=== PATIENT | male | born 1985 | race Caucasian/White ===

== ENCOUNTER 2022-12-28 13:45 | Inpatient (IN) | payer OTHER ==
[2022-12-28 14:11] VITALS: BMI 25.0
[2022-12-28] MEDS ORDERED: P-EPHED 60MG/TRIPROLIDI 2.5MG TABLET PO PRN (18:34)
[2022-12-28] MEDS ORDERED: BENZOCAINE/MENTHOL (CHLORASEPTIC ) LOZENGE MM PRN (18:34)
[2022-12-28] MEDS ORDERED: MAGNESIUM HYDROX 2400MG/30ML ORAL SUSPENSION 30 ML CUP PO PRN (18:34)
[2022-12-28] MEDS ORDERED: POLYETHYLENE GLYCOL (HEALTHYLAX) 3350 17 GM PACKET PO PRN (18:34)
[2022-12-28] MEDS ORDERED: IBUPROFEN 400 MG TABLET (FP) PO PRN (18:34)
[2022-12-28] MEDS ORDERED: guaiFENesin 200 MG/10 ML 10 ML UNIT-DOSE CUPS PO PRN (18:34)
[2022-12-28] MEDS ORDERED: PATIENT'S OWN MEDICATION (NON-FORMULARY) (Levetiracetam [Levetiracetam] 750 MG Tablet) PO SCH (22:00)
[2022-12-28] MEDS ORDERED: TUBERCULIN PPD 5 TU/0.1ML VIAL ID ONE (22:23)
[2022-12-28] MEDS: MELATONIN 5 MG TABLETS PO PRN (22:25)
[2022-12-28] MEDS: hydrOXYzine PAMOATE 25 MG CAPSULE (FP) PO PRN (22:25)
[2022-12-28] MEDS: THIAMINE HCL 100 MG TABLET (FP) PO SCH (22:25)
[2022-12-29] MEDS: PRENATAL VITAMINS W/ FOLIC ACID TABLET (FP) PO SCH (09:53)
[2022-12-29 14:51] LABS: PH,URINE 5.5 (5.0-8.0); URINE APPEARANCE CLEAR; URINE BILIRUBIN NEGATIVE (NEGATIVE); URINE COLOR YELLOW; URINE GLUCOSE (UA) NEGATIVE (NEGATIVE); URINE KETONE NEGATIVE (NEGATIVE); URINE LEUK ESTERASE NEGATIVE (NEGATIVE); URINE NITRITE NEGATIVE (NEGATIVE); URINE PROTEIN TRACE (NEGATIVE); URINE UROBILINOGEN 0.2 mg/dL (0.2-1.0)
[2022-12-29] MEDS: MELATONIN 5 MG TABLETS PO PRN (21:21)
[2022-12-29] MEDS: THIAMINE HCL 100 MG TABLET (FP) PO SCH (21:21)
[2022-12-29] MEDS: hydrOXYzine PAMOATE 25 MG CAPSULE (FP) PO PRN (21:22)
[2022-12-30] MEDS: hydrOXYzine PAMOATE 25 MG CAPSULE (FP) PO PRN ×2 (08:31→21:19)
[2022-12-30] MEDS: PRENATAL VITAMINS W/ FOLIC ACID TABLET (FP) PO SCH (10:05)
[2022-12-30] MEDS: THIAMINE HCL 100 MG TABLET (FP) PO SCH (21:19)
[2022-12-30] MEDS: MELATONIN 5 MG TABLETS PO PRN (21:19)
[2022-12-30] MEDS: MAG HYDROX/AL HYDROX/SIMETH 30 ML UNIT-DOSE CUP PO PRN (21:20)
[2022-12-31] MEDS: hydrOXYzine PAMOATE 25 MG CAPSULE (FP) PO PRN ×2 (06:19→21:30)
[2022-12-31] MEDS: PRENATAL VITAMINS W/ FOLIC ACID TABLET (FP) PO SCH (09:45)
[2022-12-31] MEDS: MELATONIN 5 MG TABLETS PO PRN (21:29)
[2022-12-31] MEDS: THIAMINE HCL 100 MG TABLET (FP) PO SCH (21:29)
[2022-12-31] MEDS: MAG HYDROX/AL HYDROX/SIMETH 30 ML UNIT-DOSE CUP PO PRN (23:06)
[2023-01-01] MEDS: PRENATAL VITAMINS W/ FOLIC ACID TABLET (FP) PO SCH (09:37)
[2023-01-01] MEDS: hydrOXYzine PAMOATE 25 MG CAPSULE (FP) PO PRN (09:37)
[2023-01-01 19:18] LABS: HEMATOCRIT 41.8 % (35.4-49); MCHC 33.4 g/dl (32.0-35.9); MEAN CELL VOLUME 89.9 fl (80-96); MEAN PLT VOLUME 8.8 fl (7.5-11.1); PLATELET COUNT 230 10^3/uL (134-434); RBC 4.64 M/mm3 (4.00-5.60); RDW 15.1 % (11.9-15.9); WHITE BLOOD COUNT 6.1 K/mm3 (4.0-10.0)
[2023-01-01 19:20] LABS: CALCIUM 9.2 mg/dL (8.5-10.1)
[2023-01-01 19:21] LABS: ALBUMIN 3.7 g/dl (3.4-5.0)
[2023-01-01 19:26] LABS: BILIRUBIN,TOTAL 0.3 mg/dL (0.2-1); TOT PROT 7.5 g/dl (6.4-8.2)
[2023-01-01] MEDS: hydrOXYzine PAMOATE 50 MG CAPSULE (FP) PO PRN (21:52)
[2023-01-01] MEDS: THIAMINE HCL 100 MG TABLET (FP) PO SCH (21:52)
[2023-01-01] MEDS: SUVOREXANT 10 MG TABLET PO PRN (21:53)
[2023-01-01] MEDS: ACETAMINOPHEN 325 MG TABLET (FP) PO PRN (23:07)
[2023-01-02] MEDS: hydrOXYzine PAMOATE 50 MG CAPSULE (FP) PO PRN (08:32)
[2023-01-02] MEDS ORDERED: SUMAtriptan SUCCINATE 25 MG TABLET PO PRN (09:25)
[2023-01-02] MEDS: PRENATAL VITAMINS W/ FOLIC ACID TABLET (FP) PO SCH (10:26)
[2023-01-02] MEDS: MAG HYDROX/AL HYDROX/SIMETH 30 ML UNIT-DOSE CUP PO PRN ×2 (14:41→21:29)
[2023-01-02] MEDS: THIAMINE HCL 100 MG TABLET (FP) PO SCH (21:28)
[2023-01-02] MEDS: SUVOREXANT 10 MG TABLET PO PRN (21:28)
[2023-01-03] MEDS: PRENATAL VITAMINS W/ FOLIC ACID TABLET (FP) PO SCH (10:01)
[2023-01-03] MEDS: hydrOXYzine PAMOATE 50 MG CAPSULE (FP) PO PRN ×2 (10:02→21:30)
[2023-01-03] MEDS: MAG HYDROX/AL HYDROX/SIMETH 30 ML UNIT-DOSE CUP PO PRN (12:28)
[2023-01-03] MEDS: THIAMINE HCL 100 MG TABLET (FP) PO SCH (21:29)
[2023-01-03] MEDS: SUVOREXANT 10 MG TABLET PO PRN (21:30)
[2023-01-03] MEDS: ACETAMINOPHEN 325 MG TABLET (FP) PO PRN (22:12)
[2023-01-04] MEDS: PRENATAL VITAMINS W/ FOLIC ACID TABLET (FP) PO SCH (09:58)
[2023-01-04] MEDS: hydrOXYzine PAMOATE 50 MG CAPSULE (FP) PO PRN ×2 (09:59→21:27)
[2023-01-04] MEDS: MAG HYDROX/AL HYDROX/SIMETH 30 ML UNIT-DOSE CUP PO PRN (13:09)
[2023-01-04] MEDS: THIAMINE HCL 100 MG TABLET (FP) PO SCH (21:27)
[2023-01-04] MEDS: SUVOREXANT 10 MG TABLET PO PRN (21:28)
[2023-01-05] MEDS: hydrOXYzine PAMOATE 50 MG CAPSULE (FP) PO PRN ×2 (06:39→21:49)
[2023-01-05] MEDS: SIMETHICONE 80 MG TAB.CHEW (FP) PO PRN (08:43)
[2023-01-05] MEDS: ACETAMINOPHEN 325 MG TABLET (FP) PO PRN (08:44)
[2023-01-05] MEDS: PRENATAL VITAMINS W/ FOLIC ACID TABLET (FP) PO SCH (09:29)
[2023-01-05] MEDS: THIAMINE HCL 100 MG TABLET (FP) PO SCH (21:48)
[2023-01-05] MEDS: SUVOREXANT 10 MG TABLET PO PRN (21:49)
[2023-01-05] MEDS: MAG HYDROX/AL HYDROX/SIMETH 30 ML UNIT-DOSE CUP PO PRN (21:51)
[2023-01-06] MEDS: hydrOXYzine PAMOATE 50 MG CAPSULE (FP) PO PRN ×2 (08:29→21:49)
[2023-01-06] MEDS: PRENATAL VITAMINS W/ FOLIC ACID TABLET (FP) PO SCH (09:52)
[2023-01-06] MEDS: SIMETHICONE 80 MG TAB.CHEW (FP) PO PRN (09:52)
[2023-01-06] MEDS: LOPERAMIDE HCL 2 MG CAPSULE PO PRN (12:53)
[2023-01-06] MEDS: ACETAMINOPHEN 325 MG TABLET (FP) PO PRN (12:54)
[2023-01-06] MEDS: THIAMINE HCL 100 MG TABLET (FP) PO SCH (21:49)
[2023-01-06] MEDS: SUVOREXANT 10 MG TABLET PO PRN (21:49)
[2023-01-07] MEDS: hydrOXYzine PAMOATE 50 MG CAPSULE (FP) PO PRN ×2 (06:43→21:13)
[2023-01-07] MEDS: PRENATAL VITAMINS W/ FOLIC ACID TABLET (FP) PO SCH (09:45)
[2023-01-07] MEDS: NALTREXONE HCL 50 MG TABLET PO SCH (18:20)
[2023-01-07] MEDS: ACETAMINOPHEN 325 MG TABLET (FP) PO PRN (19:20)
[2023-01-07] MEDS: THIAMINE HCL 100 MG TABLET (FP) PO SCH (21:11)
[2023-01-07] MEDS: SUVOREXANT 10 MG TABLET PO PRN (21:13)
[2023-01-07] MEDS: SIMETHICONE 80 MG TAB.CHEW (FP) PO PRN (21:14)
[2023-01-08] MEDS: PRENATAL VITAMINS W/ FOLIC ACID TABLET (FP) PO SCH (10:03)
[2023-01-08] MEDS: hydrOXYzine PAMOATE 50 MG CAPSULE (FP) PO PRN ×2 (10:05→22:07)
[2023-01-08] MEDS: NALTREXONE HCL 50 MG TABLET PO SCH (10:59)
[2023-01-08] MEDS ORDERED: NALTREXONE HCL 50 MG TABLET PO ONE (11:00)
[2023-01-08] MEDS ORDERED: ONDANSETRON *ODT* 4 MG TABLET SL PRN (12:39)
[2023-01-08] MEDS: LOPERAMIDE HCL 2 MG CAPSULE PO PRN (12:49)
[2023-01-08] MEDS: cloNIDine HCL 0.1 MG TABLET PO PRN (12:49)
[2023-01-08] MEDS: DICYCLOMINE HCL 10 MG CAPSULE PO PRN (12:55)
[2023-01-08] MEDS: MAG HYDROX/AL HYDROX/SIMETH 30 ML UNIT-DOSE CUP PO PRN (13:27)
[2023-01-08] MEDS: FAMOTIDINE 20 MG TABLET PO PRN ×2 (14:20→22:08)
[2023-01-08] MEDS: THIAMINE HCL 100 MG TABLET (FP) PO SCH (22:08)
[2023-01-08] MEDS: SUVOREXANT 10 MG TABLET PO PRN (22:08)
[2023-01-09] MEDS: MAG HYDROX/AL HYDROX/SIMETH 30 ML UNIT-DOSE CUP PO PRN (02:32)
[2023-01-09] MEDS: hydrOXYzine PAMOATE 50 MG CAPSULE (FP) PO PRN ×3 (03:24→21:29)
[2023-01-09] MEDS: FAMOTIDINE 20 MG TABLET PO PRN ×2 (06:59→21:29)
[2023-01-09] MEDS: cloNIDine HCL 0.1 MG TABLET PO PRN (09:01)
[2023-01-09] MEDS: PRENATAL VITAMINS W/ FOLIC ACID TABLET (FP) PO SCH (09:01)
[2023-01-09] MEDS: SIMETHICONE 80 MG TAB.CHEW (FP) PO PRN (09:02)
[2023-01-09] MEDS ORDERED: NALTREXONE HCL 50 MG TABLET PO SCH (10:00)
[2023-01-09] MEDS: DICYCLOMINE HCL 10 MG CAPSULE PO PRN (10:59)
[2023-01-09] MEDS: METHOCARBAMOL 500 MG TABLET PO PRN ×2 (10:59→21:29)
[2023-01-09] MEDS: ACETAMINOPHEN 325 MG TABLET (FP) PO PRN (17:58)
[2023-01-09] MEDS: THIAMINE HCL 100 MG TABLET (FP) PO SCH (21:29)
[2023-01-09] MEDS ORDERED: SUVOREXANT 10 MG TABLET PO PRN (22:00)
[2023-01-10] MEDS: hydrOXYzine PAMOATE 50 MG CAPSULE (FP) PO PRN ×2 (02:11→21:14)
[2023-01-10] MEDS: FAMOTIDINE 20 MG TABLET PO PRN ×2 (08:37→21:14)
[2023-01-10] MEDS: PRENATAL VITAMINS W/ FOLIC ACID TABLET (FP) PO SCH (10:03)
[2023-01-10] MEDS: METHOCARBAMOL 500 MG TABLET PO PRN ×2 (10:03→21:14)
[2023-01-10] MEDS: THIAMINE HCL 100 MG TABLET (FP) PO SCH (21:14)
[2023-01-10] MEDS ORDERED: SUVOREXANT 15 MG TABLET PO PRN (22:00)
[2023-01-11] MEDS: hydrOXYzine PAMOATE 50 MG CAPSULE (FP) PO PRN (06:46)
[2023-01-11 06:55] VITALS: BP 124/86; PULSE 94; RESP 16; TEMP 97.7
[2023-01-11] MEDS: PRENATAL VITAMINS W/ FOLIC ACID TABLET (FP) PO SCH (09:04)
== END 2023-01-11 09:25 | disposition home or self-care (01) | DRG 772 ==
LOC: YASAS 13:45 → Y3E 21:27
PROVIDERS: ADMIT Allergy & Immunology; ATTEND Psychiatry & Neurology Pain Medicine
PROC: HZ42ZZZ Group Counseling for Substance Abuse Treatment, Cognitive-Behavioral (ICD-10-PCS; principal; 2022-12-28)
DX: F11.20 Opioid dependence, uncomplicated (principal); F13.20 Sedative, hypnotic or anxiolytic dependence, uncomplicated; F41.9 Anxiety disorder, unspecified; G43.909 Migraine, unspecified, not intractable, without status migrainosus; M62.838 Other muscle spasm
CPT/HCPCS: 36415; 80053; 81003; 85027; 86780; C9803-CS; Q0162; U0003; U0005

== ENCOUNTER 2023-01-08 15:35 | Emergency (ER) | payer OTHER ==
[2023-01-08 15:55] VITALS: RESP 20; BMI 24.3
[2023-01-08] MEDS ORDERED: ACETAMINOPHEN 1000 MG/100 ML BAG IVPB ONE (16:17)
[2023-01-08] MEDS ORDERED: LACTATED RINGERS SOLUTION 1000 ML INFUS.BAG IV ONE (16:18)
[2023-01-08] MEDS ORDERED: FAMOTIDINE 20 MG/50 ML IVPB 20 MG/50 ML MG IVPB ONE (16:19)
[2023-01-08] MEDS ORDERED: ACETAMINOPHEN INJECTION 100 ML IVPB ONE (16:22)
[2023-01-08] MEDS ORDERED: FAMOTIDINE 10 MG/ML VIAL IVPB ONE (16:23)
[2023-01-08 17:01] VITALS: BP 126/90; PULSE 80; TEMP 98.3
[2023-01-08] MEDS ORDERED: cloNIDine HCL 0.1 MG TABLET PO ONE (18:09)
[2023-01-08] MEDS ORDERED: cloNIDine HCL 0.1 MG TABLET ONE (18:10)
[2023-01-08 18:48] LABS: BASO % 0.1 % (0-2.0); HEMATOCRIT 38.8 % (35.4-49); HEMOGLOBIN 12.9 GM/dL (11.7-16.9); LYMPH % 9.9 % (8-40); MCH 28.9 pg (25.7-33.7); MCHC 33.2 g/dl (32.0-35.9); MEAN PLT VOLUME 8.6 fl (7.5-11.1); MONO % 3.7 % (3.8-10.2); NEUT % 86.3 % (42.8-82.8); PLATELET COUNT 189 10^3/uL (134-434); RBC 4.46 M/mm3 (4.00-5.60); RDW 15.1 % (11.9-15.9); WHITE BLOOD COUNT 14.5 K/mm3 (4.0-10.0)
[2023-01-08 19:09] LABS: ALBUMIN 3.8 g/dl (3.4-5.0); CALCIUM 9.3 mg/dL (8.5-10.1)
[2023-01-08 19:12] LABS: CREATININE 0.9 mg/dL (0.55-1.3)
[2023-01-08 19:14] LABS: BILIRUBIN,TOTAL 0.6 mg/dL (0.2-1); TOT PROT 7.1 g/dl (6.4-8.2)
== END 2023-01-08 19:44 | disposition home or self-care (01) ==
LOC: JER 15:35
PROC: 3E033GC Introduction of Other Therapeutic Substance into Peripheral Vein, Percutaneous Approach (ICD-10-PCS; principal; 2023-01-08)
DX: F11.23 Opioid dependence with withdrawal (principal)
CPT/HCPCS: 36415; 80053; 83690; 85025; 93005; 93010; 96365; 96375; 99284-25